=== PATIENT | female | born 1955 | race Caucasian/White ===

== ENCOUNTER 2018-02-18 14:21 | Emergency (ER) | payer MEDICAID ==
[~2018-02-18] VITALS: Ht 157.5 cm; Wt 108.9 kg
[2018-02-18] MEDS ORDERED: ALBUTEROL SULFATE 0.083% 2.5 MG/3 ML VIAL.NEB INH ONE (14:45)
[2018-02-18] MEDS ORDERED: IPRATROPIUM BROM 0.5 MG/2.5 ML VIAL.NEB (ATROVENT) INH ONE (14:45)
[2018-02-18 16:18] VITALS: BP_SYST 135
== END 2018-02-18 16:18 | disposition home or self-care (01) ==
LOC: SED 14:21
DX: J45.909 Unspecified asthma, uncomplicated (principal); R03.0 Elevated blood-pressure reading, without diagnosis of hypertension
CPT/HCPCS: 71045; 94640; 99283; J7613

== ENCOUNTER 2018-08-22 13:41 | Emergency (ER) | payer MEDICAID ==
[~2018-08-22] VITALS: Ht 157.5 cm; Wt 45.4 kg
[2018-08-22 14:01] VITALS: BP_SYST 166
[2018-08-22] MEDS ORDERED: IPRATROPIUM/ALBUTEROL SULFATE 3 ML AMPUL.NEB (DUONEB) INH ONE (14:15)
[2018-08-22 15:00] VITALS: BP_SYST 134
== END 2018-08-22 15:00 | disposition home or self-care (01) ==
LOC: SED 13:41
DX: J45.901 Unspecified asthma with (acute) exacerbation (principal); J06.9 Acute upper respiratory infection, unspecified; R03.0 Elevated blood-pressure reading, without diagnosis of hypertension; F17.210 Nicotine dependence, cigarettes, uncomplicated; Z71.6 Tobacco abuse counseling
CPT/HCPCS: 86710; 94640; 99283; J7620; 36415

== ENCOUNTER → 2019-07-30 12:08 | Emergency (ER) | payer MEDICAID ==
[~2019-07-30] VITALS: Ht 154.9 cm; Wt 90.7 kg
[2019-07-30 12:08] VITALS: BP_SYST 171
[~2019-07-30 12:08] MED LIST: ALBUTEROL SULFATE 0.083% 2.5 MG/3 ML VIAL.NEB INH ONE; IPRATROPIUM BROM 0.5 MG/2.5 ML VIAL.NEB (ATROVENT) INH ONE; PREDNISONE 20 MG TABLET PO ONE
[2019-07-30 13:36] VITALS: BP_SYST 162
== END | disposition home or self-care (01) ==
LOC: SED 12:08
DX: J45.901 Unspecified asthma with (acute) exacerbation (principal)
CPT/HCPCS: 94640; 99283; J7512; J7613

== ENCOUNTER 2020-02-25 10:08 | Emergency (ER) | payer MEDICAID, SELFPAY ==
[~2020-02-25] VITALS: Ht 154.9 cm; Wt 90.7 kg
[2020-02-25 10:08] VITALS: BP_SYST 116
--- NOTE | 2020-02-25 10:08 | NUR ---
BROUGHT BACK TO BED #4 AND TRIAGED. REPORT GIVEN TO LINDSEY
--- NOTE | 2020-02-25 10:30 | NUR ---
ER at bedside examining patient.
[2020-02-25] MEDS ORDERED: predniSONE 20 MG TABLET PO ONE (10:45)
[2020-02-25] MEDS ORDERED: ALBUTEROL MDI INHALATION 8 GM INH INH ONE (10:45)
--- NOTE | 2020-02-25 10:48 | NUR ---
prednisone PO given to the pt
[2020-02-25 11:00] VITALS: BP_SYST 116
--- NOTE | 2020-02-25 11:06 | NUR ---
Patient given written and verbal discharge instructions and verbalizes understanding. ER MD discussed with patient the results and treatment provided. Patient in stable condition. ID arm band removed. Rx of Prednisone and Albuterol given. Patient educated on pain management and to follow up with PMD. Pain Scale 0/10. Opportunity for questions provided and answered. Medication side effect fact sheet provided.
== END 2020-02-25 11:06 | disposition home or self-care (01) ==
LOC: SED 10:08
DX: J45.909 Unspecified asthma, uncomplicated (principal); F17.200 Nicotine dependence, unspecified, uncomplicated; Z20.828 Contact with and (suspected) exposure to other viral communicable diseases
CPT/HCPCS: 99283; C9803; J7512; U0003

== ENCOUNTER 2021-06-01 10:44 | Emergency (ER) | payer MEDICAID, SELFPAY ==
[~2021-06-01] VITALS: Ht 154.9 cm; Wt 108.0 kg
[2021-06-01 10:59] VITALS: BP_SYST 158
[2021-06-01] MEDS ORDERED: IPRATROPIUM BROM 0.5 MG/2.5 ML VIAL.NEB (ATROVENT) INH ONE (11:30)
[2021-06-01] MEDS ORDERED: predniSONE 20 MG TABLET PO ONE (11:30)
[2021-06-01] MEDS ORDERED: ALBUTEROL SULFATE 0.083% 2.5 MG/3 ML VIAL.NEB INH ONE (11:30)
[2021-06-01] MEDS ORDERED: ALBMDI INH (12:40)
[2021-06-01] MEDS ORDERED: PRED20TA PO (12:40)
[2021-06-01 14:06] VITALS: BP_SYST 158
== END 2021-06-01 14:06 | disposition home or self-care (01) ==
LOC: SED 10:44
DX: J45.901 Unspecified asthma with (acute) exacerbation (principal); Z79.899 Other long term (current) drug therapy
CPT/HCPCS: 71045; 94640; 99283; J7512; J7613

== ENCOUNTER 2021-06-28 09:45 | Emergency (ER) | payer MEDICAID, SELFPAY ==
[~2021-06-28] VITALS: Ht 154.9 cm; Wt 108.0 kg
[2021-06-28 09:45] VITALS: BP_SYST 160
[~2021-06-28 09:45] MED LIST changes: +ALBMDI INH; -ALBUTEROL SULFATE 0.083% 2.5 MG/3 ML VIAL.NEB INH ONE; -IPRATROPIUM BROM 0.5 MG/2.5 ML VIAL.NEB (ATROVENT) INH ONE; +PRED20TA PO; -PREDNISONE 20 MG TABLET PO ONE
--- NOTE | 2021-06-28 09:45 | NUR ---
BROUGHT BACK TO OUTSIDE TRIAGE TENT, TRIAGED, WILL ASSUME CARE
--- NOTE | 2021-06-28 10:00 | NUR ---
PT STATES THAT SHE HAS HAD COVID FOR 2 WEEKS AND CAN NOT UNDERSTAND THAT SHE IS NOT BETTER YET, PT STATES THAT ALL HER FAMILY RECOVERED EXCEPT HER. STATES BODY ACHES WITH COUGH, PT IS UNVACCINATED WITH ASTHMA. PT STATES SHE NOW REGRETS NOT GETTING VACCINE. PT SPEAKING IN FULL SENTENCES, NO DISTRESS. NOT COUGHING AT THIS TIME.
--- NOTE | 2021-06-28 10:45 | NUR ---
DR VIDAL OUT TO TRIAGE TENT FOR EVALUATION
--- NOTE | 2021-06-28 11:01 | NUR ---
PT OUT TO TRIAGE TENT FOR EVALUATION, PT NOT IN TENT AT THIS TIME.
--- NOTE | 2021-06-28 11:07 | NUR ---
DR VIDAL OUT TO TRIAGE TENT, UNABLE TO LOCATE PT. PT LWBS BY
== END 2021-06-28 11:07 | disposition left against medical advice (07) ==
LOC: SED 09:45
DX: U07.1 COVID-19 (principal); Z53.21 Procedure and treatment not carried out due to patient leaving prior to being seen by health care provider

== ENCOUNTER 2021-06-29 23:56 | Emergency (ER) | payer MEDICAID, SELFPAY ==
[~2021-06-29] VITALS: Ht 154.9 cm; Wt 108.0 kg
[2021-06-30 00:05] VITALS: BP_SYST 161
--- NOTE | 2021-06-30 00:05 | NUR ---
Patient triaged and placed in the tent. VSS and patient appears in no acute distress at this time. Accompanied by fam member, awaiting available bed, and MD notified of need for MSE.
--- NOTE | 2021-06-30 00:37 | NUR ---
ER examining patient in the tent.
[2021-06-30] MEDS ORDERED: KETOROLAC TROMETHAMINE 60 MG/2 ML VIAL IM ONE (00:45)
[2021-06-30] MEDS ORDERED: IPRATROPIUM/ALBUTEROL SULFATE 3 ML AMPUL.NEB (DUONEB) INH ONE (00:45)
--- NOTE | 2021-06-30 01:00 | NUR ---
Breathing tx in progress at this time.
--- NOTE | 2021-06-30 01:04 | NUR ---
Xray performed in the tent.
[2021-06-30] MEDS ORDERED: VITD2000 PO (02:13)
[2021-06-30] MEDS ORDERED: IVER3TAB PO (02:13)
[2021-06-30] MEDS ORDERED: DEC4 PO (02:13)
[2021-06-30] MEDS ORDERED: ZINC50TA69 PO (02:13)
[2021-06-30] MEDS ORDERED: ALBU8.5H8 INH (02:16)
--- NOTE | 2021-06-30 02:39 | NUR ---
Patient given written and verbal discharge instructions and verbalizes understanding. ER MD discussed with patient the results and treatment provided. Patient in stable condition. ID arm band removed. Rx of Proair,decadron,Ivermectin,Vitamin d3 given. Patient educated on pain management and to follow up with PMD. Pain Scale 4/10. Opportunity for questions provided and answered. Medication side effect fact sheet provided.
[2021-06-30 02:46] VITALS: BP_SYST 150
== END 2021-06-30 02:46 | disposition home or self-care (01) ==
LOC: SED 23:56
DX: U07.1 COVID-19 (principal); J45.909 Unspecified asthma, uncomplicated
CPT/HCPCS: 36415; 71045; 87426; 94640; 96372; 99284; J1885